=== PATIENT | female | born 1985 | race Caucasian/White ===

== ENCOUNTER 2017-12-17 20:42 | Inpatient (IN) | payer MEDICAID ==
[~2017-12-17] VITALS: Ht 165.1 cm; Wt 71.7 kg
[~2017-12-17 20:42] MED LIST: GUAI120L55 PO
[2017-12-17 21:07] LABS: URINE HCG POSITIVE (NEG)
[2017-12-17 21:16] LABS: CLARITY,URINE CLOUDY (Clear); COLOR,URINE YELLOW (Yellow); GLUCOSE, URINE NEGATIVE (Neg); KETONES,URINE NEGATIVE (Neg); LEUKOCYTE ESTERASE ,URINE LARGE (Neg); NITRITES, URINE POSITIVE (Neg); OCCULT BLOOD,URINE MODERATE (Neg); PROTEIN,URINE 100 mg/dl (Neg); UROBILINOGEN,URINE 0.2 E.U/dL (0.2-1.0)
[2017-12-17] MEDS ORDERED: ondansetron 4mg rapidly disintigrating tab PO ONE (21:25)
[2017-12-17] MEDS ORDERED: HYDROcodone/acetaminophen 10/325mg tab PO ONE (21:25)
[2017-12-17 21:27] LABS: UA COLLECTION TYPE CLN CATCH MIDSTREAM
[2017-12-17 21:30] LABS: WBC,URINE 50-100 /HPF (0-4)
[2017-12-17 21:31] LABS: BACTERIA,URINE 2+ /HPF (Neg); SQUAMOUS EPITHELIAL CELL,UR FEW /LPF (FEW)
[2017-12-17 21:31] LABS: BASOPHILS # (AUTO) 0.1 X10'3 (0-0.2); BASOPHILS % (AUTO) 0.7 % (0-1); EOSINOPHILS # (AUTO) 0.1 X10'3 (0-0.9); EOSINOPHILS % (AUTO) 0.8 % (0-6); HEMATOCRIT 39.6 % (35.0-45.0); HEMOGLOBIN 13.7 g/dl (12.0-16.0); LYMPHOCYTES # (AUTO) 1.4 X10'3 (1.1-4.8); MEAN CORPUSCULAR HEMOGLOBIN 31.2 PG (27.0-31.0); MEAN CORPUSCULAR HGB CONC 34.6 % (33.0-36.5); MEAN CORPUSCULAR VOLUME 90.3 FL (78-98); MEAN PLATELET VOLUME 9.4 FL (7.4-10.4); MONOCYTES # (AUTO) 0.9 X10'3 (0-0.9); MONOCYTES % (AUTO) 6.6 % (2-12); NEUTROPHILS # (AUTO) 11.5 X10'3 (1.8-7.7); NEUTROPHILS % (AUTO) 81.9 % (42-75); PLATELET COUNT 194 X10'3 (140-440); RED BLOOD COUNT 4.39 X10'6 (4.20-5.60); WHITE BLOOD COUNT 14.1 X10'3 (4.5-11.0)
[2017-12-17 21:44] LABS: INR 0.9 INR; PROTHROMBIN TIME 9.5 SECONDS (9.0-12.0)
[2017-12-17 21:49] LABS: ALANINE AMINOTRANSFERASE 40 U/L (12-78); ALBUMIN 3.1 G/DL (3.4-5.0); ALBUMIN/GLOBULIN RATIO 0.7 (1.1-1.5); ALKALINE PHOSPHATASE 57 IU/L (46-116); ANION GAP 11 (8-16); ASPARTATE AMINO TRANSFERASE 27 U/L (10-37); BILIRUBIN,TOTAL 0.3 MG/DL (0.1-1.0); BLOOD UREA NITROGEN 5 MG/DL (7-18); BUN/CREATININE RATIO 8.1 (6.6-38.0); CHLORIDE 104 MMOL/L (99-107); CREATININE 0.62 MG/DL (0.40-0.90); GLUCOSE 101 MG/DL (70-104); SODIUM 138 MMOL/L (135-145); TOTAL CARBON DIOXIDE 22.7 MMOL/L (24-32); TOTAL PROTEIN 7.3 G/DL (6.4-8.2); eGFR > 90 ML/MIN
[2017-12-17] MEDS ORDERED: CefTRIAXone/D5W-Rocephin 1gm 50 ML IV ONE (22:10)
[2017-12-17] MEDS ORDERED: morphine 4 MG/ML inj SYRINge IV ONE (22:30)
[2017-12-17] MEDS ORDERED: normal saline 1000ML IV soln IVB ONE (22:35)
[2017-12-18] MEDS: dextrose 5%-1/2 normal saline 1,000 ML IV SCH ×3 (01:02→18:49)
[2017-12-18] MEDS ORDERED: magnesium hydroxide 30ml (MOM) UD suspension PO PRN (01:05)
[2017-12-18] MEDS ORDERED: mag hydrox/Alum hydrox/simeth 30ml oral suspension PO PRN (01:05)
[2017-12-18 04:31] VITALS: BP 101/62
[2017-12-18] MEDS ORDERED: phenazopyridine 100mg tablet PO ONE ×2 (04:40→12:05)
[2017-12-18 07:16] VITALS: BP 100/61
[2017-12-18] MEDS: acetaminophen 325mg tablet PO PRN ×2 (10:34→16:21)
[2017-12-18 10:40] VITALS: BP 111/70
[2017-12-18 19:45] VITALS: BP 110/54
[2017-12-18] MEDS: lactobacillus rhamnosus 10,000 MMU CELLS/CAPSULE PO SCH (20:11)
[2017-12-18] MEDS ORDERED: CefTRIAXone/D5W-Rocephin 1gm 50 ML IV SCH (21:00)
[2017-12-18 23:45] VITALS: BP 122/73
[2017-12-19] MEDS: acetaminophen 325mg tablet PO PRN ×2 (00:35→08:59)
[2017-12-19 06:02] LABS: BASOPHILS # (AUTO) 0.1 X10'3 (0-0.2); EOSINOPHILS % (AUTO) 0.2 % (0-6); HEMATOCRIT 38.2 % (35.0-45.0); LYMPHOCYTES # (AUTO) 1.8 X10'3 (1.1-4.8); MEAN CORPUSCULAR HEMOGLOBIN 31.4 PG (27.0-31.0); MEAN CORPUSCULAR HGB CONC 34.1 % (33.0-36.5); MEAN CORPUSCULAR VOLUME 92.1 FL (78-98); MEAN PLATELET VOLUME 10.1 FL (7.4-10.4); MONOCYTES # (AUTO) 0.7 X10'3 (0-0.9); MONOCYTES % (AUTO) 6.8 % (2-12); NEUTROPHILS # (AUTO) 7.5 X10'3 (1.8-7.7); PLATELET COUNT 196 X10'3 (140-440); RED BLOOD COUNT 4.15 X10'6 (4.20-5.60); RED CELL DISTRIBUTION WIDTH 13.1 % (11.5-14.5); WHITE BLOOD COUNT 10.2 X10'3 (4.5-11.0)
[2017-12-19 06:13] LABS: ALBUMIN 2.7 G/DL (3.4-5.0); ANION GAP 12 (8-16); BLOOD UREA NITROGEN 4 MG/DL (7-18); BUN/CREATININE RATIO 7.7 (6.6-38.0); CALCIUM 8.6 MG/DL (8.5-10.1); CHLORIDE 105 MMOL/L (99-107); CREATININE 0.52 MG/DL (0.40-0.90); GLUCOSE 111 MG/DL (70-104); MAGNESIUM 1.8 MG/DL (1.5-2.4); POTASSIUM 3.2 MMOL/L (3.5-5.1); SODIUM 138 MMOL/L (135-145); TOTAL CARBON DIOXIDE 20.8 MMOL/L (24-32); eGFR > 90 ML/MIN
[2017-12-19 07:00] VITALS: BP 115/73
[2017-12-19] MEDS: lactobacillus rhamnosus 10,000 MMU CELLS/CAPSULE PO SCH (08:59)
[2017-12-19] MEDS: dextrose 5%-1/2 normal saline 1,000 ML IV SCH (09:04)
[2017-12-19 11:00] VITALS: BP 104/65
== END 2017-12-19 14:45 | disposition home or self-care (01) | DRG 566 ==
LOC: ER 20:42 → ED HOLD 12-18 01:02 → EDBEDREQ 12-18 02:59 → SUR 3N 12-18 04:25
PROVIDERS: ADMIT Emergency Medicine; ATTEND Internal Medicine
DX: O23.02 Infections of kidney in pregnancy, second trimester (principal); F41.9 Anxiety disorder, unspecified; F17.210 Nicotine dependence, cigarettes, uncomplicated; O99.342 Other mental disorders complicating pregnancy, second trimester; O99.332 Smoking (tobacco) complicating pregnancy, second trimester; J45.909 Unspecified asthma, uncomplicated; O99.512 Diseases of the respiratory system complicating pregnancy, second trimester; Z3A.16 16 weeks gestation of pregnancy; Z87.442 Personal history of urinary calculi; Z88.6 Allergy status to analgesic agent
CPT/HCPCS: 36415; 76775; 80048; 80053; 81001; 81025; 83605; 83735; 84100; 84702; 85025; 85610; 87040; 87070; 87077; 87088; 87186; 96365; 96366; 99285; J0696; J2270; J7030

== ENCOUNTER 2018-08-19 10:58 | Emergency (ER) | payer MEDICAID ==
[~2018-08-19] VITALS: Ht 165.1 cm; Wt 67.6 kg
[2018-08-19 11:06] VITALS: BP 120/83
--- NOTE | 2018-08-19 11:28 | NUR ---
PATIENT REFUSED BLOOD DRAW MID-DRAWL. PATINT DEMANDED TO WATCH HER BLOOD SAMPLE BE THORWN AWAY. PUBLIC AREA ATTENDANT KELLY AND DR. CANELA AWARE. PATIENT REFUSED CARE AND AMBULATED OUT ED WITH FAMILY.
[2018-08-19] MEDS ORDERED: AMOX-422 PO (21:13)
[2018-08-19] MEDS ORDERED: HYDR-4353 PO (21:13)
[2018-08-19] MEDS ORDERED: METR-159 PO (21:13)
== END 2018-08-19 11:32 | disposition left against medical advice (07) ==
LOC: ER 11:02
DX: R19.7 Diarrhea, unspecified (principal); Z53.21 Procedure and treatment not carried out due to patient leaving prior to being seen by health care provider

== ENCOUNTER 2018-08-19 16:56 | Emergency (ER) | payer MEDICAID ==
[2018-08-19] MEDS ORDERED: normal saline 1000ML IV soln IVB ONE (18:25)
[2018-08-19] MEDS ORDERED: ondansetron/PF 4mg/2ml inj IV ONE (18:25)
[2018-08-19] MEDS ORDERED: morphine 4 MG/ML inj SYRINge IV PRN (18:25)
[2018-08-19 18:36] LABS: ALANINE AMINOTRANSFERASE 28 U/L (12-78); ALBUMIN 3.5 G/DL (3.4-5.0); ALBUMIN/GLOBULIN RATIO 0.9 (1.1-1.5); ALKALINE PHOSPHATASE 88 IU/L (46-116); AMYLASE 34 U/L (25-115); ANION GAP 12 (8-16); ASPARTATE AMINO TRANSFERASE 14 U/L (10-37); BILIRUBIN,TOTAL 0.6 MG/DL (0.1-1.0); BLOOD UREA NITROGEN 9 MG/DL (7-18); CALCIUM 8.7 MG/DL (8.5-10.1); CHLORIDE 102 MMOL/L (99-107); CREATININE 0.82 MG/DL (0.40-0.90); GLUCOSE 111 MG/DL (70-104); LIPASE 133 U/L (73-393); POTASSIUM 3.5 MMOL/L (3.5-5.1); SODIUM 138 MMOL/L (135-145); TOTAL CARBON DIOXIDE 24.4 MMOL/L (24-32); TOTAL PROTEIN 7.6 G/DL (6.4-8.2); eGFR 80 ML/MIN
[2018-08-19 18:46] LABS: BASOPHILS # (AUTO) 0.2 X10'3 (0-0.2); BASOPHILS % (AUTO) 1.5 % (0-1); EOSINOPHILS % (AUTO) 0 % (0-6); HEMATOCRIT 46.5 % (35.0-45.0); HEMOGLOBIN 15.3 g/dl (12.0-16.0); LYMPHOCYTES % (AUTO) 6.8 % (21-51); MEAN CORPUSCULAR HGB CONC 32.8 % (33.0-36.5); MEAN CORPUSCULAR VOLUME 91.3 FL (78-98); MONOCYTES # (AUTO) 1.2 X10'3 (0-0.9); MONOCYTES % (AUTO) 8.3 % (2-12); NEUTROPHILS # (AUTO) 12.5 X10'3 (1.8-7.7); NEUTROPHILS % (AUTO) 83.4 % (42-75); PLATELET COUNT 217 X10'3 (140-440); RED BLOOD COUNT 5.09 X10'6 (4.20-5.60); RED CELL DISTRIBUTION WIDTH 13.5 % (11.5-14.5); WHITE BLOOD COUNT 14.9 X10'3 (4.5-11.0)
[2018-08-19 19:58] LABS: URINE HCG NEGATIVE (NEG)
[2018-08-19 20:17] LABS: CLARITY,URINE CLEAR (Clear); COLOR,URINE YELLOW (Yellow); GLUCOSE, URINE NEGATIVE (Neg); KETONES,URINE TRACE mg/dl (Neg); LEUKOCYTE ESTERASE ,URINE NEGATIVE (Neg); NITRITES, URINE NEGATIVE (Neg); OCCULT BLOOD,URINE NEGATIVE (Neg); PROTEIN,URINE TRACE mg/dl (Neg); UROBILINOGEN,URINE 0.2 E.U/dL (0.2-1.0)
[2018-08-19 20:26] LABS: UA COLLECTION TYPE VOIDED
[2018-08-19 20:28] LABS: BACTERIA,URINE NONE SEEN /HPF (Neg); CAL OXALATE CRYSTALS 3+ /HPF (NEGATIVE); MUCUS STRANDS MODERATE /LPF (Neg); RBC,URINE NONE SEEN /HPF (0-2); SQUAMOUS EPITHELIAL CELL,UR FEW /LPF (FEW); WBC,URINE NONE SEEN /HPF (0-4)
[2018-08-19 21:13] VITALS: BP 122/72
[2018-08-19] MEDS ORDERED: AMOX-422 PO (21:13)
[2018-08-19] MEDS ORDERED: HYDR-4353 PO (21:13)
[2018-08-19] MEDS ORDERED: METR-159 PO (21:13)
[2018-08-19] MEDS ORDERED: metroNIDAZOLE 500mg tablet PO ONE (21:15)
[2018-08-19] MEDS ORDERED: amox tr/potassium clavulanate 875/125mg TAB PO ONE (21:15)
[2018-08-19] MEDS ORDERED: HYDROcodone/acetaminophen 10/325mg tab PO ONE (21:20)
== END 2018-08-19 21:27 | disposition home or self-care (01) ==
LOC: ER 16:57
DX: K52.89 Other specified noninfective gastroenteritis and colitis (principal); R10.84 Generalized abdominal pain; J45.909 Unspecified asthma, uncomplicated; Z87.442 Personal history of urinary calculi; Z88.6 Allergy status to analgesic agent
CPT/HCPCS: 36415; 74176; 80053; 81001; 81025; 82150; 83690; 85025; 85610; 96374; 96375; 99284; J2270; J2405; J7030; J3490

== ENCOUNTER 2018-09-11 21:08 | Emergency (ER) | payer MEDICAID ==
[~2018-09-11] VITALS: Ht 165.1 cm; Wt 69.2 kg
[~2018-09-11 21:08] MED LIST changes: -GUAI120L55 PO; +HYDR-4353 PO
[2018-09-11] MEDS ORDERED: proparacaine 0.5% ophthalmic drops 15ml EACHEYE ONE (22:10)
[2018-09-11] MEDS ORDERED: acetaminophen 325mg tablet PO ONE (23:20)
[2018-09-11] MEDS ORDERED: ERYT1OIN6 EACHEYE (23:22)
[2018-09-11] MEDS ORDERED: HYDR-4353 PO (23:46)
[2018-09-11] MEDS ORDERED: HYDROcodone/acetaminophen 10/325mg tab PO ONE (23:50)
[2018-09-12 00:10] VITALS: BP 136/86
== END 2018-09-12 00:51 | disposition home or self-care (01) ==
LOC: ER 21:08
DX: S05.02XA Injury of conjunctiva and corneal abrasion without foreign body, left eye, initial encounter (principal); J45.909 Unspecified asthma, uncomplicated; Z88.8 Allergy status to other drugs, medicaments and biological substances; X58.XXXA Exposure to other specified factors, initial encounter; Y93.89 Activity, other specified; Y92.89 Other specified places as the place of occurrence of the external cause; Y99.8 Other external cause status
CPT/HCPCS: 99283

== ENCOUNTER 2019-01-02 17:05 | Emergency (ER) | payer MEDICAID ==
[~2019-01-02] VITALS: Ht 165.1 cm; Wt 60.0 kg
[2019-01-02 18:15] VITALS: BP 128/83
[2019-01-02 19:19] LABS: URINE HCG NEGATIVE (NEG)
[2019-01-02 19:21] LABS: CLARITY,URINE CLOUDY (Clear); GLUCOSE, URINE NEGATIVE (Neg); KETONES,URINE TRACE mg/dl (Neg); LEUKOCYTE ESTERASE ,URINE NEGATIVE (Neg); NITRITES, URINE NEGATIVE (Neg); OCCULT BLOOD,URINE LARGE (Neg); PH,URINE 5.5 (4.8-8.0); PROTEIN,URINE TRACE mg/dl (Neg); UROBILINOGEN,URINE 0.2 E.U/dL (0.2-1.0)
--- NOTE | 2019-01-02 19:23 | NUR ---
Pt reports use of tylenol at home for pain with no ill effect even though she reports NSAIDS allergy. Discussed pain with Dr. Rockwell; new order received.
[2019-01-02 19:25] LABS: COLOR,URINE DARK YELLOW (Yellow); UA COLLECTION TYPE CLN CATCH MIDSTREAM
[2019-01-02] MEDS ORDERED: acetaminophen 325mg tablet PO ONE (19:25)
--- NOTE | 2019-01-02 19:31 | NUR ---
PER LAB URINE REJECTED FOR CULTURES
[2019-01-02 19:32] LABS: BACTERIA,URINE 2+ /HPF (Neg); CAL OXALATE CRYSTALS 1+ /HPF (NEGATIVE); MUCUS STRANDS MANY /LPF (Neg); RBC,URINE 0-2 /HPF (0-2); SQUAMOUS EPITHELIAL CELL,UR MANY /LPF (FEW)
[2019-01-02] MEDS ORDERED: NITR100C6 PO (20:12)
[2019-01-02] MEDS ORDERED: hydrOXYzine 25 MG tablet PO ONE (20:15)
== END 2019-01-02 20:28 | disposition home or self-care (01) ==
LOC: ER 17:06
DX: N39.0 Urinary tract infection, site not specified (principal); F41.9 Anxiety disorder, unspecified; J45.909 Unspecified asthma, uncomplicated; F17.200 Nicotine dependence, unspecified, uncomplicated; Z87.442 Personal history of urinary calculi; Z88.8 Allergy status to other drugs, medicaments and biological substances; Z79.899 Other long term (current) drug therapy
CPT/HCPCS: 81001; 81025; 99283; Q0177

== ENCOUNTER 2019-12-31 17:47 | Emergency (ER) | payer MEDICAID, OTHER ==
[~2019-12-31] VITALS: Ht 165.1 cm; Wt 79.5 kg
[~2019-12-31 17:47] MED LIST changes: -HYDR-4353 PO; +NITR100C6 PO
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
[2019-12-31] MEDS ORDERED: LORazepam 2 mg/ml vial IM ONE (19:05)
[2019-12-31] MEDS ORDERED: haloperidol lactate 5mg/ml inj IM ONE (19:05)
--- NOTE | 2019-12-31 19:15 | NUR ---
SECURITY AT BEDSIDE AND ADDITIONAL RN CALLED OVER FOR MEDICATION IM TO BE DELIVERED. PT WAS BALE TO SIT UP IN BED AND ALLOW US TO GIVE HER IM INJECTION TEARFULLY , AND THEN ROLLED OVER TO HER LEFT SIDE TO REST .
--- NOTE | 2019-12-31 19:45 | NUR ---
PT SISTER MELISSA LEFT BEDSIDE SHE CAN BE REACHED AT [phone] SHE TOOK AL OF PATIENTS BELONGINGS WITH HER WHEN SHE LEFT THE UNIT
--- NOTE | 2019-12-31 20:05 | NUR ---
LAB AT BEDSIDE FOR DRAW ENCOURAGED PT TO VOID . PT STATED SHE NEEDED MORE FLUIDS OFFERED PT CRANBERRY JUICE AND WATER . PT CONSUMED APPROX 200 ML OF PO FLUID
[2019-12-31 20:23] LABS: BASOPHILS # (AUTO) 0.1 X10'3 (0-0.2); BASOPHILS % (AUTO) 0.8 % (0-1); EOSINOPHILS # (AUTO) 0.2 X10'3 (0-0.9); EOSINOPHILS % (AUTO) 2.3 % (0-6); HEMATOCRIT 41.4 % (35.0-45.0); HEMOGLOBIN 13.9 g/dl (12.0-16.0); LYMPHOCYTES # (AUTO) 2.6 X10'3 (1.1-4.8); LYMPHOCYTES % (AUTO) 33.4 % (21-51); MEAN CORPUSCULAR HEMOGLOBIN 30.4 PG (27.0-31.0); MEAN CORPUSCULAR HGB CONC 33.6 g/dL (33.0-36.5); MEAN CORPUSCULAR VOLUME 90.2 FL (78-98); MEAN PLATELET VOLUME 9.6 FL (7.4-10.4); MONOCYTES # (AUTO) 0.6 X10'3 (0-0.9); MONOCYTES % (AUTO) 8.1 % (2-12); NEUTROPHILS # (AUTO) 4.3 X10'3 (1.8-7.7); NEUTROPHILS % (AUTO) 55.4 % (42-75); PLATELET COUNT 216 X10'3 (140-440); RED BLOOD COUNT 4.59 X10'6 (4.20-5.60); RED CELL DISTRIBUTION WIDTH 14.1 % (11.5-14.5); WHITE BLOOD COUNT 7.8 X10'3 (4.5-11.0)
[2019-12-31 20:26] LABS: ALANINE AMINOTRANSFERASE 23 U/L (12-78); ALBUMIN 3.5 G/DL (3.4-5.0); ALBUMIN/GLOBULIN RATIO 0.9 (1.1-1.5); ALKALINE PHOSPHATASE 72 IU/L (46-116); ANION GAP 8 (8-16); ASPARTATE AMINO TRANSFERASE 20 U/L (10-37); BILIRUBIN,TOTAL 0.5 MG/DL (0.1-1.0); BLOOD UREA NITROGEN 11 MG/DL (7-18); BUN/CREATININE RATIO 12.4 (6.6-38.0); CALCIUM 8.4 MG/DL (8.5-10.1); CHLORIDE 104 MMOL/L (99-107); CREATININE 0.89 MG/DL (0.40-0.90); GLUCOSE 119 MG/DL (70-104); POTASSIUM 3.1 MMOL/L (3.5-5.1); SODIUM 138 MMOL/L (135-145); TOTAL CARBON DIOXIDE 25.7 MMOL/L (24-32); TOTAL PROTEIN 7.2 G/DL (6.4-8.2); eGFR 73 ML/MIN
[2019-12-31 20:35] LABS: ETHANOL < 0.010 GM/DL (0.0-0.010)
--- NOTE | 2019-12-31 21:00 | NUR ---
PT SLEEPING PEACFULLY ON HER LEFT SIDE RESP EVEN AND UNLABORED IN THE DIRECT LINE OF SIGHT OF NURSING STAFF WILL CONTINUE TO MONITOR AND REASSESS
--- NOTE | 2019-12-31 21:54 | NUR ---
PT SLEEPING PEACFULLY SUPINE RESP EVEN AND UNLABORED IN THE DIRECT LINE OF SIGHT OF NURSING STAFF WILL CONTINUE TO MONITOR AND REASSESS
--- NOTE | 2019-12-31 23:00 | NUR ---
PT SLEEPING PEACFULLY RESP EVEN AND UNLABORED WILL CONTINUE TO MONOTOR AND REASSES
--- NOTE | 2020-01-01 | NUR ---
PT JOHN MANDI HER LEFT SIDE RESP UNLABORED AND EVEN IN THE DIRECT LINE OF SIGHT OF STAFF WILL CONTINUE TO MONITOR AND RESSESS
--- NOTE | 2020-01-01 01:00 | NUR ---
PT SLEEPING SUPIN ERESP EVEN AND UNLABORED WILL CONTINUE TO MONITOR AND REASSES
--- NOTE | 2020-01-01 02:03 | NUR ---
PT SLEEPIN MANDI HER LEFT SIDE . RESP EVEN UNLABORED IN THE DIRECT LINE OF SIGHT OF NURSING STAFF
--- NOTE | 2020-01-01 03:11 | NUR ---
PT SLEEPING ON HER RIGHT SIDE . RESP EVEN . PT IN THE DIRECT LINE OF SIGHT OF NURSING STAFF WILL CONTINUE TO MONITOR AND REASSESS
--- NOTE | 2020-01-01 03:22 | NUR ---
PT DIET ORDER FAXED TO DIETARY
--- NOTE | 2020-01-01 03:22 | NUR ---
Karen hugo in [facility] - 01/01/20 at [phone] by EMILY DIET ORDER FAXED TO PHARMACY
--- NOTE | 2020-01-01 04:04 | NUR ---
PT SLEEPING SUPINE RESP EVEN UN LABORED WILL CONTINUE TO MONITOR AND REASSESS
--- NOTE | 2020-01-01 05:03 | NUR ---
PT SLEEPING ON HER LEFT SIDE RESP EVEN UN LABORED WILL CONTINUE TO MONITOR AND REASSESS
[2020-01-01 05:53] VITALS: BP 117/69
[2020-01-01] MEDS ORDERED: potassium Cl 20 mEq SR tablet PO STA (06:01)
--- NOTE | 2020-01-01 06:11 | NUR ---
pt aurosable upon vs . reminded patient that need to void this am for UA
--- NOTE | 2020-01-01 06:30 | NUR ---
PT WENT TO RESTROOM TO URINATE BUT UNABLE TO URINATE ENOUGH,INSTRUCTED TO TRY LATER AFTER DRINKING WATER.FRESH PITCHER OF WATER KEPT AT BEDSIDE TABLE.WILL CONT TO MONITOR.
--- NOTE | 2020-01-01 08:18 | NUR ---
PT MEDICATED WITH POTASSIUM PER MD ORDER,PT LOOKED RELAXED,OBEY COMMANDS AT THIS TIME.WILL CONT TO MONITOR.
--- NOTE | 2020-01-01 08:30 | NUR ---
PT UP IN BED EATING HER BREAKFAST.WILL CONT TO MONITOR,PT IN CLOSE VISIBILTY OF NURSING STATION.
--- NOTE | 2020-01-01 08:40 | NUR ---
PT REMINDED AGAIN THAT WE NEED URINE SAMPLE,PT STATED THAT SHE WILL TRY IN FEW MINS ,NOT READY YET.WILL WAIT FOR THE PT.
--- NOTE | 2020-01-01 09:30 | NUR ---
pt urine sample collected ,dark sandy colored urine .will send it to the lab ,pt back to her laying down,will cont to monitor.room next to nursnig station,we can keep close eye on pt.
[2020-01-01 09:53] LABS: URINE HCG NEGATIVE (NEG)
[2020-01-01 09:54] LABS: CLARITY,URINE CLOUDY (Clear); COLOR,URINE YELLOW (Yellow); GLUCOSE, URINE NEGATIVE (Neg); KETONES,URINE NEGATIVE (Neg); LEUKOCYTE ESTERASE ,URINE TRACE (Neg); NITRITES, URINE NEGATIVE (Neg); OCCULT BLOOD,URINE NEGATIVE (Neg); PROTEIN,URINE NEGATIVE (Neg); UA COLLECTION TYPE CLN CATCH MIDSTREAM
[2020-01-01 10:00] LABS: MUCUS STRANDS MANY /LPF (Neg); SQUAMOUS EPITHELIAL CELL,UR MANY /LPF (FEW)
[2020-01-01 10:02] LABS: BACTERIA,URINE 2+ /HPF (Neg); RBC,URINE 0-2 /HPF (0-2)
--- NOTE | 2020-01-01 10:15 | NUR ---
pt sleeping in her bed on her rgt side RR even and unlabored,will cont to monitor.
[2020-01-01 10:20] LABS: URINE AMPHETAMINE SCREEN NEGATIVE (Neg); URINE BARBITUATE SCREEN NEGATIVE (Neg); URINE BENZODIAZEPINES SCREEN NEGATIVE (Neg); URINE CANNABINOID SCREEN NEGATIVE (Neg); URINE COCAINE SCREEN NEGATIVE (Neg); URINE METHADONE SCREEN NEGATIVE (Neg); URINE OPIATE SCREEN NEGATIVE (Neg); URINE PHENCYCLIDINE SCREEN NEGATIVE (Neg)
--- NOTE | 2020-01-01 11:26 | NUR ---
PT SLEEPING IN SUPINE POSITION,RELAXED,RR EVEN AND UNLABORED.WILL CONT TO MONITOR.
--- NOTE | 2020-01-01 12:28 | NUR ---
ASSUMED CARE OF PT FROM SALINA MCKEON, PT IS BEING EVALUATED BY [facility]
--- NOTE | 2020-01-01 13:24 | NUR ---
pt eating lunch, calm and cooperative
== END 2020-01-01 14:10 | disposition home or self-care (01) ==
LOC: ER 17:48
DX: F29 Unspecified psychosis not due to a substance or known physiological condition (principal); J45.909 Unspecified asthma, uncomplicated; F41.9 Anxiety disorder, unspecified; F32.9 Major depressive disorder, single episode, unspecified; F15.90 Other stimulant use, unspecified, uncomplicated; Z87.442 Personal history of urinary calculi; Z87.440 Personal history of urinary (tract) infections; Z72.89 Other problems related to lifestyle; Z88.6 Allergy status to analgesic agent
CPT/HCPCS: 36415; 80053; 80305; 80320; 81001; 81025; 84443; 85025; 96372; 99284; J1630; J2060

== ENCOUNTER 2020-03-18 11:18 | Emergency (ER) | payer MEDICAID ==
[~2020-03-18] VITALS: Ht 165.1 cm; Wt 82.6 kg
[2020-03-18 11:27] VITALS: BP 110/79
[2020-03-18] MEDS ORDERED: HYDR-3686 PO (12:34)
== END 2020-03-18 12:43 | disposition home or self-care (01) ==
LOC: ER 11:18
DX: F41.0 Panic disorder [episodic paroxysmal anxiety] (principal); J45.909 Unspecified asthma, uncomplicated; F32.9 Major depressive disorder, single episode, unspecified; F15.90 Other stimulant use, unspecified, uncomplicated; Z87.442 Personal history of urinary calculi; Z87.440 Personal history of urinary (tract) infections; Z72.89 Other problems related to lifestyle; Z79.899 Other long term (current) drug therapy
CPT/HCPCS: 99283

== ENCOUNTER 2020-04-13 01:44 | Emergency (ER) | payer MEDICAID ==
[~2020-04-13] VITALS: Ht 162.6 cm; Wt 68.2 kg
[2020-04-13] MEDS ORDERED: haloperidol lactate 5mg/ml inj IM ONE ×2 (01:55→15:25)
[2020-04-13 02:31] LABS: URINE HCG NEGATIVE (NEG)
[2020-04-13 02:32] LABS: COLOR,URINE YELLOW (Yellow); GLUCOSE, URINE NEGATIVE (Neg); KETONES,URINE 40 mg/dl (Neg); LEUKOCYTE ESTERASE ,URINE TRACE (Neg); NITRITES, URINE NEGATIVE (Neg); OCCULT BLOOD,URINE NEGATIVE (Neg); PH,URINE 5.5 (4.8-8.0); PROTEIN,URINE 30 mg/dl (Neg)
[2020-04-13 02:32] LABS: BASOPHILS # (AUTO) 0.1 X10'3 (0-0.2); BASOPHILS % (AUTO) 0.7 % (0-1); EOSINOPHILS % (AUTO) 0 % (0-6); HEMATOCRIT 40.1 % (35.0-45.0); HEMOGLOBIN 13.6 g/dl (12.0-16.0); LYMPHOCYTES # (AUTO) 1.3 X10'3 (1.1-4.8); LYMPHOCYTES % (AUTO) 18.1 % (21-51); MEAN CORPUSCULAR HEMOGLOBIN 30.5 PG (27.0-31.0); MEAN CORPUSCULAR VOLUME 89.7 FL (78-98); MEAN PLATELET VOLUME 10.4 FL (7.4-10.4); MONOCYTES # (AUTO) 0.6 X10'3 (0-0.9); MONOCYTES % (AUTO) 7.8 % (2-12); NEUTROPHILS # (AUTO) 5.4 X10'3 (1.8-7.7); NEUTROPHILS % (AUTO) 73.4 % (42-75); PLATELET COUNT 242 X10'3 (140-440); RED BLOOD COUNT 4.47 X10'6 (4.20-5.60); WHITE BLOOD COUNT 7.4 X10'3 (4.5-11.0)
[2020-04-13 02:41] LABS: PARTIAL THROMBOPLASTIN TIME 24 SECONDS (22-32)
[2020-04-13 02:43] LABS: CLARITY,URINE SLIGHTLY CLOUDY (Clear); UA COLLECTION TYPE NON-SPECIFIED
[2020-04-13 02:44] LABS: BACTERIA,URINE FEW /HPF (Neg); MUCUS STRANDS MODERATE /LPF (Neg); RBC,URINE 0-2 /HPF (0-2); SQUAMOUS EPITHELIAL CELL,UR MODERATE /LPF (FEW); WBC CLUMPS,URINE FEW /HPF (NEGATIVE); WBC,URINE 20-30 /HPF (0-4)
[2020-04-13 02:47] LABS: ALANINE AMINOTRANSFERASE 21 U/L (12-78); ALBUMIN 4.5 G/DL (3.4-5.0); ALBUMIN/GLOBULIN RATIO 1.3 (1.1-1.5); ALKALINE PHOSPHATASE 52 IU/L (46-116); ANION GAP 14 (8-16); ASPARTATE AMINO TRANSFERASE 29 U/L (10-37); BILIRUBIN,TOTAL 0.8 MG/DL (0.1-1.0); BLOOD UREA NITROGEN 19 MG/DL (7-18); BUN/CREATININE RATIO 17.9 (6.6-38.0); CALCIUM 9.2 MG/DL (8.5-10.1); CHLORIDE 107 MMOL/L (99-107); CREATININE 1.06 MG/DL (0.40-0.90); GLUCOSE 121 MG/DL (70-104); POTASSIUM 3.2 MMOL/L (3.5-5.1); SODIUM 145 MMOL/L (135-145); TOTAL PROTEIN 8.1 G/DL (6.4-8.2); eGFR 59 ML/MIN
[2020-04-13 02:48] LABS: URINE AMPHETAMINE SCREEN NEGATIVE (Neg); URINE BARBITUATE SCREEN NEGATIVE (Neg); URINE BENZODIAZEPINES SCREEN NEGATIVE (Neg); URINE CANNABINOID SCREEN NEGATIVE (Neg); URINE COCAINE SCREEN NEGATIVE (Neg); URINE METHADONE SCREEN NEGATIVE (Neg); URINE OPIATE SCREEN NEGATIVE (Neg); URINE PHENCYCLIDINE SCREEN NEGATIVE (Neg)
[2020-04-13] MEDS ORDERED: potassium Cl 20 mEq SR tablet PO STA (02:53)
[2020-04-13] MEDS ORDERED: magnesium oxide 400mg tablet PO ONE (02:55)
--- NOTE | 2020-04-13 02:56 | NUR ---
DR. GANDHI AT BEDSIDE ASSESSING PATIENT RR EVEN UN LABORED NO OBSERVABLE S/S OF ACUTE STRESS AT THIS TIME WILL CONTINUE TO MONITOR
[2020-04-13 03:05] LABS: ETHANOL < 0.010 GM/DL (0.0-0.010)
--- NOTE | 2020-04-13 03:15 | NUR ---
PACKET FAXED TO [facility] OFFICE
--- NOTE | 2020-04-13 03:42 | NUR ---
sleeping quietly in her gurney. Patient was pleasant during transfer to [facility].
[2020-04-13] MEDS ORDERED: MIDAZolam 5mg/ml 2ml vial IM ONE (04:10)
--- NOTE | 2020-04-13 04:15 | NUR ---
patient stood up and spoke in un distinguishable words and then was redirected. she continues to lay in bed now with anxiously
--- NOTE | 2020-04-13 04:17 | NUR ---
dr thomas advised that 5mgIM of versed may help. currently, the patient is refusing the medication.
[2020-04-13 04:53] VITALS: BP 134/83
--- NOTE | 2020-04-13 06:00 | NUR ---
pt is resting. no issues at this time
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
--- NOTE | 2020-04-13 08:00 | NUR ---
pt is resting. no issues at this time
--- NOTE | 2020-04-13 09:00 | NUR ---
pt is resting. no issues at this time
--- NOTE | 2020-04-13 10:00 | NUR ---
pt is sleeping
--- NOTE | 2020-04-13 11:30 | NUR ---
pt is sleeping
--- NOTE | 2020-04-13 12:30 | NUR ---
pt is sleeping
[2020-04-13 12:35] LABS: ALBUMIN 4.2 G/DL (3.4-5.0); ANION GAP 11 (8-16); BLOOD UREA NITROGEN 18 MG/DL (7-18); BUN/CREATININE RATIO 28.6 (6.6-38.0); CALCIUM 8.8 MG/DL (8.5-10.1); CHLORIDE 107 MMOL/L (99-107); CREATININE 0.63 MG/DL (0.40-0.90); GLUCOSE 100 MG/DL (70-104); POTASSIUM 3.6 MMOL/L (3.5-5.1); SODIUM 144 MMOL/L (135-145); TOTAL CARBON DIOXIDE 25.7 MMOL/L (24-32); eGFR > 90 ML/MIN
--- NOTE | 2020-04-13 13:30 | NUR ---
pt is sleeping
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
--- NOTE | 2020-04-13 15:00 | NUR ---
pt is upset and keeping saying that tomorrow she needs to get a gun and kill herself
[2020-04-13] MEDS ORDERED: diphenhydrAMINE 50 mg/ml inj IM ONE (15:25)
[2020-04-13] MEDS ORDERED: LORazepam 2 mg/ml vial IM ONE (15:25)
--- NOTE | 2020-04-13 16:00 | NUR ---
pt accepted to rest pad madie. hand picker at 9pm
--- NOTE | 2020-04-13 17:00 | NUR ---
pt is resting. no issues at this time
--- NOTE | 2020-04-13 18:00 | NUR ---
pt is resting. no issues at this time
== END 2020-04-13 21:23 ==
LOC: ER 01:44 → EEVIPCON 01:44 → ER 21:23
DX: S60.511A Abrasion of right hand, initial encounter (principal); E87.6 Hypokalemia; R45.851 Suicidal ideations; R45.1 Restlessness and agitation; J45.909 Unspecified asthma, uncomplicated; F41.9 Anxiety disorder, unspecified; F32.9 Major depressive disorder, single episode, unspecified; F15.90 Other stimulant use, unspecified, uncomplicated; Z87.442 Personal history of urinary calculi; Z87.440 Personal history of urinary (tract) infections; Z72.89 Other problems related to lifestyle; X78.8XXA Intentional self-harm by other sharp object, initial encounter; Y93.89 Activity, other specified; Y92.89 Other specified places as the place of occurrence of the external cause; Y99.8 Other external cause status
CPT/HCPCS: 36415; 80048; 80053; 80305; 80320; 81001; 81025; 84443; 85025; 85730; 96372; 99285; J1200; J1630; J2060